=== PATIENT | male | born 1960 | race Caucasian/White ===

== ENCOUNTER 2023-11-17 19:29 | Emergency (ER) | payer BC, OTHER ==
[2023-11-17 19:49] VITALS: BP 109/68; PULSE 81; RESP 16; TEMP 97.7; BMI 43.7
[2023-11-17 20:49] LABS: BASO % 0.6 % (0-2.0); EOS % 1.7 % (0-4.5); HEMATOCRIT 42.6 % (35.4-49); HEMOGLOBIN 14.5 GM/dL (11.7-16.9); LYMPH % 8.4 % (8-40); MCH 31.2 pg (25.7-33.7); MCHC 33.9 g/dl (32.0-35.9); MEAN PLT VOLUME 6.6 fl (7.5-11.1); MONO % 7.1 % (3.8-10.2); NEUT % 82.2 % (42.8-82.8); PLATELET COUNT 283 10^3/uL (134-434); RBC 4.63 M/mm3 (4.00-5.60); RDW 14.1 % (11.9-15.9); WHITE BLOOD COUNT 13.5 K/mm3 (4.0-10.0)
[2023-11-17 21:10] LABS: POTASSIUM 4.4 mmol/L (3.5-5.1)
[2023-11-17 21:13] LABS: ALBUMIN 3.6 g/dl (3.4-5.0); BLOOD UREA NITROGEN 13.5 mg/dL (7-18)
[2023-11-17 21:17] LABS: BILIRUBIN,TOTAL 0.8 mg/dL (0.2-1); TOT PROT 6.8 g/dl (6.4-8.2)
[2023-11-17 21:55] LABS: LACTIC ACID 2.4 mmol/L (0.4-2.0)
[2023-11-17] MEDS ORDERED: FAMOTIDINE 10 MG/ML VIAL IVPB ONE (22:06)
[2023-11-17] MEDS ORDERED: MAG HYDROX/AL HYDROX/SIMETH 30 ML UNIT-DOSE CUP ONE (22:06)
[2023-11-17] MEDS: FAMOTIDINE 20 MG/50 ML IVPB 20 MG/50 ML MG IVPB ONE (22:15)
[2023-11-17] MEDS: SODIUM CHLORIDE 0.9% 500 ML INFUS.BAG IV ONE (22:15)
[2023-11-17] MEDS: MAG HYDROX/AL HYDROX/SIMETH 30 ML UNIT-DOSE CUP PO ONE (22:15)
[2023-11-18] MEDS ORDERED: ACETAMINOPHEN 325 MG TABLET (FP) ONE (01:21)
[2023-11-18] MEDS: ACETAMINOPHEN 325 MG TABLET (FP) PO ONE (01:25)
== END 2023-11-18 01:26 | disposition home or self-care (01) ==
LOC: JER 19:29
PROC: 3E033GC Introduction of Other Therapeutic Substance into Peripheral Vein, Percutaneous Approach (ICD-10-PCS; principal; 2023-11-17)
DX: R10.13 Epigastric pain (principal); R14.0 Abdominal distension (gaseous); R11.0 Nausea
CPT/HCPCS: 36415; 80053; 83605; 83690; 84484; 85025; 93005; 93010; 99284-25